=== PATIENT | male | born 2000 | race Caucasian/White ===

== ENCOUNTER 2021-04-13 14:23 | Emergency (ER) | payer OTHER, SELFPAY ==
[2021-04-13 14:31] VITALS: BP 125/69; PULSE 90; RESP 96; TEMP 36.9; O2SAT 96; BMI 38.7
[2021-04-13 14:54] VITALS: BP 125/69; PULSE 90; RESP 18; TEMP 36.9; O2SAT 96
[2021-04-13 14:57] LABS: UTC Strep Screen (Rapid) Negative (Negative)
--- NOTE | 2021-04-13 15:36 | HMH.EDUTC ---
[facility] [place] Clinical Impression: Exposure to COVID-19 virus Asthma exacerbation Qualifiers: Asthma severity: unspecified severity Asthma persistence: unspecified Qualified Code(s): J45.901 - Unspecified asthma with (acute) exacerbation Disposition: Home, Self-Care Condition on Discharge: Good Instructions: Preventing the Spread of Coronavirus Discharge Instructions Additional Instructions: Drink plenty of fluids. Take tylenol or ibuprofen for pain or fever. Take the medications as directed. Follow up with your regular doctor. GO TO THE ER FOR ANY WORSENING SYMPTOMS Prescriptions: Brompheniramine/Pseudoephed/Dm [Bromfed Dm Cough Syrup] 5 ml PO Q6HP PRN #240 syrup PRN Reason: Cough Transmission Status: Received by [id number] Azithromycin [Z-Simon 250mg Tab*] 250 mg PO UD DOSE PK #6 tab Transmission Status: Received by [id number] Referrals: Provider,Referral, MD [Primary Care Provider] - Forms: Work/School Release Time of Disposition: 15:44 Medical Decision Making - Medical Records Medical records reviewed: No: I reviewed the patient's medical records. - Alex Inquiry Pt receiving controlled substance: No Vital Signs: 04/13/21 14:31 04/13/21 14:54 Temperature 98.4 F 98.4 F Temperature Source Oral Pulse Rate 90 Pulse Rate [Left] 90 Respiratory Rate 96 H 18 Blood Pressure 125/69 Blood Pressure [Right Arm] 125/69 Blood Pressure Mean [Right Arm] 87 02 Sat by Pulse Oximetry 96 - Lab Data Lab Results 04/13/21 14:52: Strep Scn Rapid Clinic Negative Orders (Tests/Meds): ORDERS Category Date Time Status Covid-19 Nasal PCR ([place]) Routine Lab 04/13/21 14:40 Received Strep Screen Confirmation Stat Micro 04/13/21 14:52 [place] [facility] [place] - General Stated complaint: covid symtoms Time Seen by Provider: 04/13/21 14:45 Mode of Arrival: Ambulatory Source of Information: Patient Limitations: No Limitations Description of Symptoms (Recalled from Triage Doc. by RN): Pt states he was reading the sign at work and he was having some of the symptoms of Covid so he wants to be testing. Pt had a Rodríguez and Rodríguez shot a week ago. Pt complains of Sore throat, diarrhea, cough and nausea. HEENT Symptoms (Recalled from RN notes): No Resp Symptoms (Recalled from RN notes): No Skin Symptoms (Recalled from RN notes): No MS Symptoms (Recalled from RN notes): No Functional Status (Recalled from RN notes): wnl - History of Present Illness Provider Complaint: He states that he has had diarrhea, chest congestion, sore throat, chilling and body aches for the past 3 days. - Related Data Previous Rx's Medication Instructions Recorded Azithromycin [Z-Simon 250mg Tab*] 250 mg PO UD DOSE PK #6 tab 04/13/21 Brompheniramine/Pseudoephed/Dm 5 ml PO Q6HP PRN #240 syrup 04/13/21 [Bromfed Dm Cough Syrup] Allergies Allergy/AdvReac Type Severity Reaction Status Date / Time Amoxicillin Allergy Intermediate Rash Uncoded 04/13/21 14:51 - Worker's Comp Is this a Worker's Comp case?: No [facility] History - Hepatitis A Screen Drug use history?: No High risk sexual behaviors?: No History of sexually transmitted infection?: No Currently employed?: No Childcare worker?: No Do you have indoor plumbing?: Yes Do you have electricity?: Yes Attestation statement:: This patient has been screened for Hepatitis A risk factors. I have reviewed the patient's past medical history: Yes - Social History Smoking Status: Never smoker Alcohol Intake: never Occupational Status: employed ROS Obtained: Yes All systems reviewed & no additional complaints - Constitutional Constitutional: Reports system reviewed and no additional complaints, except as docu - Eyes Eyes: Reports system reviewed and no additional complaints, except as docu - ENT Ears, Nose, Mouth, and Throat: Reports system reviewed and no additional complaints, except as docu - Cardiovascular Cardiov
== END 2021-04-13 15:54 | disposition home or self-care (01) ==
PROVIDERS: Emergency Provider Nurse Practitioner Family
DX: J45.901 Unspecified asthma with (acute) exacerbation (principal); Z20.822 Contact with and (suspected) exposure to COVID-19
CPT/HCPCS: 87880; 99202; G0463; U0003

== ENCOUNTER 2022-10-09 19:07 | Emergency (ER) | payer BC, SELFPAY ==
[2022-10-09 19:09] VITALS: BP 141/72; PULSE 89; RESP 17; TEMP 36.9; O2SAT 99; BMI 32.1
--- NOTE | 2022-10-09 19:35 | XR_ITS ---
PROCEDURE INFORMATION: Exam: XR Left Hand Exam date and time: 10/09/2022 7:42 PM Age: 22 years old Clinical indication: Injury or trauma; Other: Punched a wall; Blunt trauma (contusions or hematomas); Hand; Left; Additional info: Punch wall, hand pain swelling TECHNIQUE: Imaging protocol: Radiologic exam of the Left hand. Views: 3 or more views. COMPARISON: No relevant prior studies available. FINDINGS: Bones/joints: There is an acute, displaced, volarly angulated fracture of the 5th metacarpal shaft . There is approximate 7 mm fracture override. There is an acute mildly displaced fracture along the base of 4th metacarpal. Soft tissues: Overlying soft tissue swelling noted. IMPRESSION: 1. There is an acute, displaced, volarly angulated fracture of the 5th metacarpal shaft . 2. Acute mildly displaced fracture along the base of the 4th metacarpal
--- NOTE | 2022-10-09 19:39 | HMH.EDGENADL ---
Discharge Plan Disposition Patient Disposition: Home, Self-Care Condition: Good Prescriptions Prescriptions: New hydrocodone-acetaminophen 5-325 mg tablet 1 tab PO Q6H PRN (Reason: pain) Qty: 10 0RF No Action azithromycin 250 MG tablet 250 mg PO UD DOSE PK Qty: 6 0RF Rx Instructions: Take two (2) tablets today, then one (1) tablet days #2 thru #5 [id number] 118 ML syrup 5 ml PO Q6HP PRN (Reason: Cough) Qty: 240 0RF Referrals Follow up/Referrals: Denilson Patel JR, MD [Physician] - See instructions Provider,ReferralMD [Primary Care Provider] - See instructions Activity Restrictions/Add. Instructions Additional Instructions/Restrictions: [place] as needed for pain. Ibuprofen or Tylenol as needed for less severe pain. Additional instructions for FRACTURED (BROKEN) BONE: See Dr. Patel as soon as possible for further evaluation. Treat your splint like you would a cast: Do not get it wet (cover with a plastic bag while bathing or showering). If the splint feels too tight, you may loosen the paula wrap covering it, but do not remove the splint. You may ice the fracture by applying an ice pack over the top of the splint, without removing the splint. Return to an emergency department immediately if you have uncontrollable pain, loss of feeling or inability to move your injured extremity. Additional instructions for CONTROLLED SUBSTANCES: You have been prescribed a medication that is a controlled substance. Controlled substances include pain medications known as opiates and sedative nerve medications known as benzodiazepines. Tramadol, fioricet, and gabapentin are also controlled substances. Some common opiates include: Codeine (such as Tylenol #3) Hydrocodone (Vicodin, Lortab, Lorcet, [place]) Oxycodone (Percocet, Percodan, Oxycodone, Oxy IR) Some common benzodiazepines include: Diazepam (Valium) Lorazepam (Ativan) Alprazolam (Xanax) Clonazepam (Klonopin) Oxazepam (Serax) All of these controlled substances are highly addictive and frequently abused. Misuse can and frequently does lead to addiction as well as overdose and . Medication should be stored in a locked cabinet or other secure storage unit. Do not store the medication in a motor vehicle. Short term supplies, 3 days or less, are prescribed because of the highly addictive nature of the medication. Any of the controlled substance medication NOT taken should be disposed of properly and NOT SAVED. The recommended method of disposing of unused medications is: Place the medicines in a sealable plastic bag. If the medicine is a solid, crush it or add water to dissolve it. Add something undesirable (cat litter, coffee grounds, etc.) Dispose of sealed bag in household trash Do not flush or pour unused medicines down a sink or drain. Controlled substances should not be shared, given away or sold. Because of the addictive nature and frequent abuse, these medications are sometimes stolen. These medications should be kept in a safe place where they cannot be stolen. Do not keep them in your car or purse. Lost or stolen prescriptions for controlled substances WILL NOT BE REFILLED in this emergency department, regardless of whether a police report was filed. Clinical Impressions Clinical Impression: Fracture of metacarpal Qualifiers: Encounter type: initial encounter Metacarpal bone: fifth Fracture type: closed Metacarpal location: shaft Fracture alignment: displaced Laterality: left Qualified Code(s): S62.327A - Displaced fracture of shaft of fifth metacarpal bone, left hand, initial encounter for closed fracture Instructions Patient Instructions: DI for Boxer's Fracture, How to Take Care of Your Splint Discharge ED Provider: Gregg Read General Adult HPI General Chief complaint: Extremity Injury, Upper Stated complaint: [id number], Left hand pain Time Seen by Provider: 10/09/22 19:35 Mod
--- NOTE | 2022-10-09 20:09 | PC.NURSE ---
Dr. Read s/w Dr. Patel. Pt will follow up in office. requested ulnar-gutter splint.
[2022-10-09 20:34] VITALS: BP 140/71; PULSE 88; RESP 18; TEMP 36.6; O2SAT 97
== END 2022-10-09 20:38 | disposition home or self-care (01) ==
PROVIDERS: Emergency Provider Emergency Medicine
DX: S62.327A Displaced fracture of shaft of fifth metacarpal bone, left hand, initial encounter for closed fracture (principal); S60.222A Contusion of left hand, initial encounter; R05.9 Cough, unspecified; G43.909 Migraine, unspecified, not intractable, without status migrainosus; J45.909 Unspecified asthma, uncomplicated; Z79.1 Long term (current) use of non-steroidal anti-inflammatories (NSAID); Z88.0 Allergy status to penicillin; Z88.1 Allergy status to other antibiotic agents; Z88.3 Allergy status to other anti-infective agents
CPT/HCPCS: 73130; 99283

== ENCOUNTER 2022-10-19 08:52 | Day surgery (SDC) | payer BC, SELFPAY ==
[2022-10-18 08:32] VITALS: BMI 28.8
[2022-10-19] VITALS (10 sets, daily range): BP systolic 120–148; BP diastolic 65–88; PULSE 75–104; RESP 14–22; TEMP 36.3–37.1; O2SAT 95–98
--- NOTE | 2022-10-19 11:16 | P.PN_ITS ---
[facility] Disclaimer: The information contained in this section may have been updated after the patient was seen, as this information can be updated by other users. Medical History Asthma Migraine No significant past medical history Surgical History (Updated 10/19/22 @ 09:22 by Zhao Gambino RN) No history of previous surgery Family History (Updated 10/18/22 @ 08:34 by Micki Medrano RN) Other No significant family history Social History Smoking Status: Never smoker second hand exposure: No alcohol intake: never substance use type: denies use current occupational status: employed Travel in the last 8 weeks: None [facility] Anesthesia Checklist Patient Identification Patient Identification: Arm Band Structural Data Admitted From: Home Planned Operative Procedure/s: ORIF Left 5th Metacarpal Consent for Planned Operative Procedure(s) Verified: Yes Verified Documents: Surgical Consent and History and Physical NPO Status Verified Time NPO: 00:00 Additional verifications Anesthesia Reactions: No Hx Blood Transfusions: No Blood Transfusion Reaction: No Airway Assessment C-Spine Mobility Assessed: Yes TMJ Mobility Assessed: Yes Dentition: Good Dentition Neurological Assessment Level of Consciousness: Awake and Alert Anesthesia Plan Anesthesia Plan: Verified ASA Class: II Anesthesia Type: General w/block (Left Supraclavicular Nerve Block. Risks/benefits explained. Pt verbalized understanding)
--- NOTE | 2022-10-19 12:33 | XR_ITS ---
FINAL REPORT CLINICAL HISTORY: LT HAND ORIF FT: 0:77 FINDINGS: Fluoroscopic guidance was provided for the operating services. Three spot films were provided. 77 seconds of fluoroscopy time was utilized. IMPRESSION: 77 seconds of fluoroscopy time. Reviewed, Interpreted and Dictated by Bala Lindo MD Transcribed by Von Scott Authenticated and [facility]
--- NOTE | 2022-10-19 12:51 | EXP.ANES.I ---
[facility] Anesthesia Record Part I Anesthesia Record I Intake, IV Amount: 1,000 Estimated blood loss (mL): 0 Urine output (mL): 0 Blood Products used (#): none Blood Pressure: 120/80 SaO2: 96 Pulse Rate: 104 Respiratory Rate: 22 Temperature: 97.3 F Patient is:: Drowsy and Stable Stable to PACU at:: 12:45
--- NOTE | 2022-10-19 13:03 | EXP.OP.NOTE ---
Date of procedure: 10/19/22 Pre-op Diagnosis:: Left displaced fifth metacarpal shaft fracture Post-op Diagnosis:: Same Procedure performed:: Open reduction internal fixation left fifth metacarpal fracture with intramedullary screw Surgeon:: Gonzalo Batres DO Anesthesia: GETA and regional Estimated blood loss (mL): 0 Operative findings:: See dictation Operative note:: Patient identified preoperatively. Left upper extremity marked yes my initials. Underwent a block with anesthesia. Transferred operative suite placed upon operating bed. Hand table placed. Left upper extremity prepped and draped after general anesthesia ministered airway secured. Once prepped and draped final operative timeout performed to identify proper patient procedure and extremity. Everyone involved the case agreed. No counter indications to begin. Did receive preoperative antibiotics Marking pen was used to olivia fracture site and x-ray was brought in to visualize the fracture site marking pen was also made over the MCP joint of the small finger for planned incision. Esmarch was used to exsanguinate extremity pneumatic tourniquet plated 2 to 50 mmHg. Skin F was used incise the skin careful dissection taken down to find the extensor tendons to the small finger were split in line and protected and retracted throughout the procedure. This allow me to identify the dorsal aspect of the metacarpal head. Using x-ray visualization guidewire was placed through metacarpal head down through the shaft and across the fracture site. Reduction confirmed on AP and lateral views. Once reduction performed and K wire across the fracture site the opening drill for the 3.5 mm headless compression screw was utilized. Measured to size 50 and a 53.5 mm headless compression screw was placed across the fracture site there was good bite across the fracture and good compression at the fracture site and good rotational stability. Fingers were checked and no crossover deformity was seen and they fell in good line with cascade from the other fingers. Irrigation the wound performed extensor mechanism split repaired with Vicryl stitch skin closed with nylon stitch ulnar gutter splint placed patient waken anesthesia taken recovery in stable condition. Condition: stable Disposition: PACU Complications:: None apparent
--- NOTE | 2022-10-19 13:19 | SUR.PHASEI ---
1312 called and gave detailed report to Chema Gambino RN 1315 transported via stretcher to post op. vital signs stable. denies pain at this time. left in stable condition with Chema Gambino RN at this time.
--- NOTE | 2022-10-19 13:42 | P.PNANES_ITS ---
[facility] Anesthesia Record Part II Anesthesia Record Part II Discharge Time: 13:15 Destination: Surgical Day Care (OP Surgery) PACU nurse assessment reviewed?: Yes Patient Condition:: Good Anesthesia Complications:: None Swallowing reflex intact?: Yes Cyanosis?: No Blood Pressure: 137/88 Pulse Rate: 88 Temperature: 97.3 F Mental Status: Alert & Oriented Pain level:: 0 Nausea and/or vomitting:: None Intake, IV Amount: 0
== END 2022-10-19 13:55 | disposition home or self-care (01) ==
PROVIDERS: Visit Provider Orthopaedic Surgery
PROC: (CPT 26615; principal; 2022-10-19 10:30)
DX: S62.327A Displaced fracture of shaft of fifth metacarpal bone, left hand, initial encounter for closed fracture (principal); S62.315A Displaced fracture of base of fourth metacarpal bone, left hand, initial encounter for closed fracture; W22.09XA Striking against other stationary object, initial encounter
CPT/HCPCS: 26615; 73120; 96374; C1713; J2405; J2710

== ENCOUNTER 2022-11-01 10:33 | Outpatient (RCR) | payer BC, SELFPAY | END 2022-11-01 11:30 | disposition home or self-care (01) | LOC: OT 10:33 | PROVIDERS: Visit Provider Orthopaedic Surgery | DX: S62.327A Displaced fracture of shaft of fifth metacarpal bone, left hand, initial encounter for closed fracture (principal) | CPT/HCPCS: 97763 ==

== ENCOUNTER → 2022-11-29 10:15 | Outpatient (CLI) | payer BC, SELFPAY ==
--- NOTE | 2022-11-29 10:30 | XR_ITS ---
FINAL REPORT CLINICAL HISTORY: left ORIF COMPARISON: 10/09/2022 FINDINGS: LEFT HAND Three views of the left hand demonstrate interval ORIF of the 5th metacarpal fracture. There has been interval healing of the fracture site. No other fracture is identified. IMPRESSION: Post ORIF of 5th metacarpal fracture with interval healing. Reviewed, Interpreted and Dictated by Sandoval Pantoja III, MD Transcribed by Mayela Harris Authenticated and [facility]
== END ==
LOC: RAD 10:16
PROVIDERS: Visit Provider Orthopaedic Surgery
DX: M79.642 Pain in left hand (principal); S62.307A Unspecified fracture of fifth metacarpal bone, left hand, initial encounter for closed fracture
CPT/HCPCS: 73130

== ENCOUNTER 2024-04-11 21:02 | Emergency (ER) | payer SELFPAY ==
[2024-04-11 21:15] VITALS: BP 132/72; PULSE 84; RESP 16; O2SAT 98; BMI 33.3
[2024-04-11 21:33] VITALS: BP 125/78; PULSE 80; RESP 15; TEMP 36.8; O2SAT 99
--- NOTE | 2024-04-11 22:07 | HMH.EDGENADL ---
Discharge Plan Disposition Patient Disposition: Home, Self-Care Condition: Good Prescriptions Prescriptions: New ondansetron 4 mg tablet,disintegrating 4 mg PO Q8H PRN (Reason: nausea and vomiting) 4 Days Qty: 12 0RF No Action hydrocodone-acetaminophen 5-325 mg tablet 1 tab PO Q4H PRN (Reason: post op pain) Qty: 30 0RF Referrals Follow up/Referrals: Provider,Referral, MD [Primary Care Provider] - See instructions Activity Restrictions/Add. Instructions Additional Instructions/Restrictions: You were evaluated in the emergency department today. 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 Return to the emergency department for new or worsening symptoms. Clinical Impressions Clinical Impression: Nausea and vomiting, Encounter to obtain excuse from work Stand Alone Forms Stand Alone Forms: Work/School Release Instructions Patient Instructions: DI for Vomiting -- Adult Discharge ED Provider: Pam Wilde General Adult HPI General Chief complaint: Nausea/Vomiting/Diarrhea Stated complaint: needs to be cleared for work Time Seen by Provider: 04/11/24 21:15 Mode of Arrival: Ambulatory Source of Information: Patient Limitations: No Limitations Description of Symptoms (Recalled from ER Triage Doc. by RN): Pt. presented to the ED , was sick this morningwith nausea, vomiting and dry heaves. He called into work and his boss said he needs a doctor note to return to work. Pt, feels better now and has no complaints. History of Present Illness HPI narrative: This patient is a 23-year-old male who denies significant past medical history presenting to the emergency department requesting a work note. He advises that he had nausea and vomiting early this morning. He is feeling fine now after going back to bed for the day. He is no longer having nausea or vomiting. He did not have abdominal pain throughout any of this. He states he does not need workup of this, but he does need a work excuse because he missed work today given his nausea and vomiting. No other concerns noted at this time. Related Data Previous Rx's Medication Instructions Recorded hydrocodone 5 mg-acetaminophen 325 1 tab PO Q4H PRN post op pain #30 10/19/ mg tablet tabs ondansetron 4 mg disintegrating 4 mg PO Q8H PRN nausea and 04/11/24 tablet vomiting 4 days #12 tabs Allergies Allergy/AdvReac Type Severity Reaction Status Date / Time Amoxicillin Allergy Intermediate Rash Uncoded 11/29/22 11:15 [facility] Disclaimer: The information contained in this section may have been updated after the patient was seen, as this information can be updated by other users. Medical History No significant past medical history Asthma Migraine Surgical History Status post open reduction and internal fixation (ORIF) of fracture No history of previous surgery Family History Other No significant family history Social History Smoking Status: Current some day smoker second hand exposure: No alcohol intake: never substance use type: marijuana current occupational status: employed Travel in the last 8 weeks: None ROS Obtained: Yes All systems reviewed & no additional complaints except as documented Physical Exam General General appearance: alert and in no apparent distress Head Head exam: atraumatic and normocephalic Eye Eye exam: Present normal appearance, PERRL and EOMI ENT ENT exam: Present normal exam, normal oropharynx, mucous membranes moist and normal external ear exam Neck Neck exam: Present normal inspection, full ROM and trachea midline; Absent tenderness Chest Chest inspection: Present normal inspection and symmetric chest wall rise; Absent tenderness Respiratory Respiratory exam: Present normal lung sounds bilaterally; Absent respiratory distress, wheezes, stridor or accessory muscle use Cardiovascular Cardiovascular exam: Present regular rate and normal rhythm Abdominal Exam Abdominal exam: Present soft; Absent distention, tenderness or guarding Extremities Exam Extremities exam: Present normal inspection, full ROM and normal capillary refill; Absent tenderness or edema Back Exam Back exam: Present normal inspection and full ROM; Absent tenderness Neurological Exam Neurological exam: Present alert, oriented X3, CN II-XII intact and normal gait; Absent motor sensory deficit Psychiatric Psychiatric exam: Present normal affect and normal mood Skin Skin exam: Present warm and dry Medical Decision Making Medical Records Medical records reviewed: Yes I reviewed the patient's medical records. Alex Inquiry Pt receiving controlled substance: No Vital Signs: 04/11/24 21:15 04/11/24 21:33 Temperature 98.2 F Temperature Source Oral Pulse Rate 80 Pulse Rate [Right Radial] 84 Respiratory Rate 16 15 Blood Pressure 125/78 Blood Pressure [Right Arm] 132/72 Blood Pressure Mean [Right Arm] 92 Blood Pressure Source Automatic Cuff Blood Pressure Source [Right Arm] Automatic Cuff Blood Pressure Position Sitting Blood Pressure Position [Right Arm] Sitting 02 Sat by Pulse Oximetry 98 Oxygen Delivery Method Room Air Room Air Lab Data Lab results reviewed: Yes I reviewed the patient's lab results. Medical Decision Narrative: In summary, this patient is a 23-year-old male presenting to the Emergency Department for evaluation of nausea vomiting that happened earlier today requesting a work note since he missed work. Differential diagnoses considered include but are not limited to gastroenteritis, gastritis, colitis, dehydration. Ruling out the most morbid conditions drove assessment. On exam, the patient is well-appearing with benign abdominal exam. He denies any concerns, complaints or symptoms at this time. He states he is feeling fine and just needs a work excuse. Given this, he was provided with a work excuse as well as prescription for Zofran in case he develops vomiting again. Patient was discharged with strict precautions. Critical Care Critical Care Time Critical Care Time: No
== END 2024-04-11 21:34 | disposition home or self-care (01) ==
PROVIDERS: Emergency Provider Emergency Medicine
DX: R11.2 Nausea with vomiting, unspecified (principal); Z02.89 Encounter for other administrative examinations
CPT/HCPCS: 99281